=== PATIENT | female | born 1975 | race Caucasian/White ===

== ENCOUNTER 2016-08-23 16:18 | Emergency (ER) | payer MEDICARE ==
[~2016-08-23] VITALS: Ht 170.2 cm; Wt 53.3 kg
[~2016-08-23 16:18] MED LIST: CLON2TAB16 PO; DOCU-30 PO; METH-356 PO; OXYC20TA42 PO; POLY17PO5 PO
[2016-08-23 17:02] LABS: BLOOD UREA NITROGEN 13 mg/dL (7-18)
[2016-08-23 17:08] LABS: ACETAMINOPHEN < 2 mcg/mL (10-30)
[2016-08-23 17:34] LABS: DAU SCREEN DISCLAIMER
[2016-08-23] MEDS ORDERED: SUMA4PEN SQ (18:42)
[2016-08-23] MEDS ORDERED: IBUP200C8 PO (18:42)
[2016-08-23] MEDS ORDERED: CLON1TAB23 PO (18:42)
[2016-08-23] MEDS ORDERED: OXYC10TA6 PO (18:42)
[2016-08-23] MEDS ORDERED: POLY17PO5 PO (18:42)
[2016-08-23] MEDS ORDERED: FAMO-79 PO (18:42)
[2016-08-23 20:21] VITALS: BP 111/75
== END 2016-08-23 20:23 | disposition home or self-care (01) ==
LOC: ED 17:45
DX: F41.1 Generalized anxiety disorder (principal); F33.9 Major depressive disorder, recurrent, unspecified; F11.20 Opioid dependence, uncomplicated
CPT/HCPCS: 36415; 80048; 80307; 80329; 82040; 84703; 85025; 99284; G0480

== ENCOUNTER 2020-01-02 03:33 | Emergency (ER) | payer MEDICARE ==
[~2020-01-02] VITALS: Ht 170.2 cm; Wt 67.6 kg
[~2020-01-02 03:33] MED LIST changes: +CLON1TAB23 PO; +DOCU-131 PO; -DOCU-30 PO; +FAMO-79 PO; +IBUP200C8 PO; -METH-356 PO; +METH10TA2 PO; +OXYC10TA6 PO; +SUMA4PEN SQ
[2020-01-02 05:21] VITALS: BP 124/85
--- NOTE | 2020-01-02 05:43 | NUR ---
Patient/Caregiver given discharge instructions and they have confirmed that they understand the instructions. Patient ambulatory with steady gait.
== END 2020-01-02 05:44 | disposition home or self-care (01) ==
LOC: ED 05:38
DX: F41.9 Anxiety disorder, unspecified (principal); Z76.0 Encounter for issue of repeat prescription; R00.0 Tachycardia, unspecified; G89.29 Other chronic pain; G43.909 Migraine, unspecified, not intractable, without status migrainosus; Z90.89 Acquired absence of other organs
CPT/HCPCS: 93005; 99283

== ENCOUNTER 2020-04-29 16:38 | Emergency (ER) | payer MEDICARE, MEDICAID ==
[~2020-04-29] VITALS: Ht 170.2 cm; Wt 65.5 kg
--- NOTE | 2020-04-29 17:36 | NUR ---
BREAK RN: PATIENT RESTING IN [place], WATCHING TV, NADN, CALL LIGHT WITHIN REACH.
--- NOTE | 2020-04-29 17:39 | NUR ---
ERMD AT BEDSIDE TO DISCUSS POC.
[2020-04-29 17:45] VITALS: BP 136/86
== END 2020-04-29 18:16 | disposition home or self-care (01) ==
LOC: ED 17:21
DX: F41.1 Generalized anxiety disorder (principal); G43.909 Migraine, unspecified, not intractable, without status migrainosus; Z76.0 Encounter for issue of repeat prescription
CPT/HCPCS: 99283

== ENCOUNTER 2020-05-09 17:04 | Emergency (ER) | payer MEDICARE, MEDICAID ==
[~2020-05-09] VITALS: Ht 170.2 cm; Wt 64.5 kg
--- NOTE | 2020-05-09 17:32 | NUR ---
KITCHEN HELPER: PT TO ROOM FROM LOBBY
--- NOTE | 2020-05-09 17:40 | NUR ---
PCP WON'T PRECRIBE ANYMORE [facility]. AT [facility] 1 WEEK AGO WAS TAKEN 1MG BID. LAST TOOK 0.5MG YESTERDAY AT 5PM. (HAS BEEN TAPERING DOSE FOR A WEEK) WITH ASSESSMENT NOT IN ACUTE WITHDRAWAL-VSS, NOT DIAPHORETIC/OVERLY ANXIOUS
--- NOTE | 2020-05-09 18:26 | NUR ---
BREAK RN: SLIP SENT TO THE PHARMACY FOR MEDICATION. VS STABLE. NO ACUTE DISTRESS NOTED. WILL CONTINUE TO MONITOR WHILE PRIMARY RN IS ON BREAK.
[2020-05-09] MEDS ORDERED: CHLORDIAZEPOXIDE 10 MG CAPSULE PO PRN (18:30)
[2020-05-09 18:42] VITALS: BP 115/68
[2020-05-09] MEDS ORDERED: CHLORDIAZEPOXIDE 10 MG CAPSULE ONE (18:46)
--- NOTE | 2020-05-09 18:52 | NUR ---
break rn: report given to IDA Pittman
== END 2020-05-09 19:42 | disposition home or self-care (01) ==
LOC: ED 19:30
DX: F13.239 Sedative, hypnotic or anxiolytic dependence with withdrawal, unspecified (principal); F41.9 Anxiety disorder, unspecified; Z90.89 Acquired absence of other organs; Z88.8 Allergy status to other drugs, medicaments and biological substances
CPT/HCPCS: 99283